=== PATIENT | male | born 1975 | race Hispanic/Latino ===

== ENCOUNTER 2021-04-01 03:44 | Emergency (ER) | payer OTHER, SELFPAY | END 2021-04-01 04:31 | disposition home or self-care (01) | LOC: BURERS 03:44 | DX: S39.012A Strain of muscle, fascia and tendon of lower back, initial encounter (principal); S50.01XA Contusion of right elbow, initial encounter; S40.811A Abrasion of right upper arm, initial encounter; R00.0 Tachycardia, unspecified; Z79.899 Other long term (current) drug therapy; V86.59XA Driver of other special all-terrain or other off-road motor vehicle injured in nontraffic accident, initial encounter | CPT/HCPCS: 99284 ==